=== PATIENT | male | born 1955 | race Caucasian/White ===

== ENCOUNTER 2017-07-06 09:14 | Emergency (ER) | payer OTHER ==
[~2017-07-06] VITALS: Ht 188 cm; Wt 120.0 kg
[2017-07-06 09:25] VITALS: BP 170/101; PULSE 97; RESP 18; TEMP 98.2; O2SAT 98
[2017-07-06] MEDS ORDERED: TETANUS/DIPHTHERIA TOXOID ADULT 0.5 ML VIAL IM ONE (09:45)
[2017-07-06] MEDS ORDERED: LIDOCAINE HCL 1% PF 30 ML VIAL INFIL ONE (09:45)
[2017-07-06] MEDS ORDERED: IBUP1TAB7 PO (10:18)
[2017-07-06] MEDS ORDERED: CEPH-460 PO (10:18)
--- NOTE | 2017-07-06 10:20 | PD ---
HPI Chief Complaint: Laceration/Skin Injury Time Seen by Provider: 09:32 Travel History International Travel<30 days: No Contact w/Intl Traveler<30days: No Traveled to known affect area: No History of Present Illness HPI 61-year-old male presents to the ED for evaluation of left lower leg. Sustained while working. Patient states that he ran into the corner of a piece of plywood. He denies numbness, tingling, weakness, limitations to range of motion of the extremity. Versus previous chainsaw injury to the thigh of the same leg with no residual deficits. He is unsure of the date of his last tetanus immunization. No treatment attempted before arrival. Patient is a current smoker. [facility] Social History Tobacco Use: Yes Allergies-Medications (Allergen,Severity, Reaction): Coded Allergies: No Known Allergies (Verified Allergy, Unknown, 07/06/17) Reported Meds & Prescriptions Reported Meds & Active Scripts Active Ibuprofen 800 Mg Tab 800 Mg PO Q8H PRN Keflex (Cephalexin) 500 Mg Cap 500 Mg PO Q6H 7 Days Review of Systems Except as stated in HPI: all other systems reviewed are Neg Physical Exam Narrative GENERAL: Well-nourished, well-developed pleasant white male in no acute distress. SKIN: Focused skin assessment warm/dry. There is a 7-8 cm V-shaped laceration on the medial aspect of the left side. No visible foreign body. No active bleeding. HEAD: Normocephalic. EYES: No scleral icterus. No injection or drainage. NECK: Supple, trachea midline. No JVD or lymphadenopathy. CARDIOVASCULAR: Regular rate and rhythm without murmurs, gallops, or rubs. RESPIRATORY: Breath sounds equal bilaterally. No accessory muscle use. GASTROINTESTINAL: Abdomen soft, non-tender, nondistended. MUSCULOSKELETAL: No cyanosis, or edema. FOCUSED LEFT LOWER EXTREMITY EXAM: 2+ DP pulse. Patient retains full, active, painless R OM of the extremity. Neurovascularly intact distally. BACK: Nontender without obvious deformity. No CVA tenderness. Data Data Last Documented VS Vital Signs Date Time Temp Pulse Resp B/P (MAP) Pulse Ox O2 Delivery O2 Flow Rate FiO2 07/06/17 09:25 98.2 97 18 170/101 (124) 98 Orders Orders Tetanus/Diphtheria Tox Adult (Tetanus/Di (07/06/17 09:45) Lidocaine Pf 1% Inj (Xylocaine-Mpf 1% In (07/06/17 09:45) Ibuprofen (Motrin) (07/06/17 10:30) Ed Discharge Order (07/06/17 10:21) [facility] Medical Decision Making Medical Screen Exam Complete: Yes Emergency Medical Condition: Yes Differential Diagnosis Abrasion versus laceration versus foreign body versus need for tetanus immunization versus other Narrative Course 61-year-old male presents to the ED for evaluation of left lower leg. Sustained while working. Patient states that he ran into the corner of a piece of plyfrintit. He denies numbness, tingling, weakness, limitations to range of motion of the extremity. He is unsure of the date of his last tetanus immunization. Vitals reviewed. On exam there is a 7-8 cm V-shaped laceration on the medial aspect the left calf. The extremity is neurovascularly intact with full R OM. Laceration repair was performed. Please see my procedure note for details. Tetanus immunization was updated. The patient was prescribed prophylactic Keflex 500 mg 4 times a day 7 days. He is prescribed a short course of anti-inflammatories. He was given detailed wound care instructions. He is instructed to have the sutures removed in 7-10 days. He indicated understanding of the instructions and is agreeable to the care plan. The patient is stable and discharged home. Procedures Procedure Narrative LACERATION LOCATION: Medial aspect left calf LENGTH: 8 cm V-shaped NUMBER OF STITCHES/DAWIT: 12 REPAIR: The area of the laceration was prepped with Betadine and sterilely draped. The laceration was infiltrated with 1% lidocaine. The wound was copiously irrigated and explored without evidence of foreign body, tendon injury or neurovascular injury. The wound was closed using 3-0 Vicryl and 4-0 Prolene. This was a 2 layer repair. A sterile dressing was applied. The patient was advised to keep the dressing clean and dry. Patient tolerated the procedure well. Diagnosis Primary Impression: Laceration of left lower leg Qualified Codes: S81.812A - Laceration without foreign body, left lower leg, initial encounter Additional Impression: Immunization, tetanus toxoid Referrals: Primary Care Physician Additional Instructions: Rest, hydrate. Do not change the dressing for 24 hours. You may shower normally. Do not submerge the wound. After bathing pat of wound dry. Allow the wound to air dry for 10-15 minutes. Apply a thin layer of antibiotic ointment and a clean, dry dressing. Take the antibiotics as they are prescribed, even if your symptoms resolved. 100 mg ibuprofen up to 3 times a day as needed for pain. Elevate the leg this may help with pain and swelling. Suture removal in 7-10 days. Follow-up with primary care provider. Return to the ED for any urgent or emergent medical condition. Med/Other Pt SpecificInfo: Prescription(s) given Scripts Ibuprofen (Ibuprofen) 800 Mg Tab 800 MG PO Q8H Y for Pain/Inflammation, #15 TAB 0 Refills Prov: Ti Pryor MD 07/06/17 Cephalexin (Keflex) 500 Mg Cap 500 MG PO Q6H for Infection for 7 Days, #28 CAP 0 Refills Prov: Ti Pryor MD 07/06/17 Disposition: 01 DISCHARGE HOME Condition: Stable Tala Spivey Jul 06, 2017 10:20
[2017-07-06] MEDS ORDERED: IBUPROFEN 800 MG TAB PO ONE (10:30)
== END 2017-07-06 10:34 | disposition home or self-care (01) ==
LOC: NEPK 09:14
DX: S81.812A Laceration without foreign body, left lower leg, initial encounter (principal); F17.210 Nicotine dependence, cigarettes, uncomplicated; W22.8XXA Striking against or struck by other objects, initial encounter; Y99.0 Civilian activity done for income or pay; Z23 Encounter for immunization
CPT/HCPCS: 12034; 90471; 90714